=== PATIENT | male | born 1965 | race Caucasian/White ===

== ENCOUNTER → 2023-05-22 | Emergency (ER) | payer OTHER ==
[~2023-05-22] VITALS: Ht 180.3 cm; Wt 104.3 kg
[~2023-05-22] MED LIST: TDAP [DIPH/PERTUSSIS/TET] 0.5 ML VIAL IM ONE
[2023-05-22] MEDS: TDAP [DIPH/PERTUSSIS/TET] 0.5 ML VIAL IM ONE (16:29)
[2023-05-22 17:08] VITALS: BP 150/84; TEMP 97.9; O2SAT 98
== END | disposition home or self-care (01) ==
LOC: ER 13:59
DX: S61.310A Laceration without foreign body of right index finger with damage to nail, initial encounter (principal); W45.8XXA Other foreign body or object entering through skin, initial encounter; Y93.89 Activity, other specified; Y92.89 Other specified places as the place of occurrence of the external cause; Y99.0 Civilian activity done for income or pay
CPT/HCPCS: 90715

== ENCOUNTER 2023-07-13 20:48 | Emergency (ER) | payer MEDICAID, OTHER ==
[~2023-07-13] VITALS: Ht 177.8 cm; Wt 79.8 kg
[2023-07-13] MEDS ORDERED: NALOXONE PREFILLED SYRINGE 2 MG/2 ML SYRINGE ONE (21:35)
[2023-07-13] MEDS ORDERED: ONDANSETRON HCL/PF 4 MG/2 ML VIAL ONE ×2 (21:35→23:24)
[2023-07-13 21:36] LABS: BASOPHILS % (AUTO) 0.4 % (0.0-2.0); EOSINOPHILS % (AUTO) 0.5 % (0.0-6.0); HEMATOCRIT 41 % (39-51); HEMOGLOBIN 13.4 g/dL (13.5-17.5); LYMPHOCYTES # (AUTO) 1.2 K/uL (0.8-4.8); LYMPHOCYTES % (AUTO) 11.1 % (20.0-44.0); MEAN CORPUSCULAR HEMOGLOBIN 26 PG (26.0-33.0); MEAN CORPUSCULAR HGB CONC 33 g/dl (31.0-36.0); MEAN CORPUSCULAR VOLUME 80 fL (80-96); MONOCYTES # (AUTO) 0.7 K/uL (0.1-1.30); MONOCYTES % (AUTO) 6.6 % (2.0-12.0); NEUTROPHILS # (AUTO) 8.7 K/uL (1.8-8.9); NEUTROPHILS % (AUTO) 81.4 % (43.0-81.0); PLATELET COUNT (AUTO) 203 K/uL (150-450); RED CELL DISTRIBUTION WIDTH 14.5 % (11.5-15.0); WHITE BLOOD COUNT (AUTO) 10.7 K/uL (4.3-11.0)
[2023-07-13] MEDS: IV NS 0.9% 1,000 ML BAG IV ONE (21:36)
[2023-07-13] MEDS: NALOXONE PREFILLED SYRINGE 2 MG/2 ML SYRINGE IV ONE (21:36)
[2023-07-13] MEDS: ONDANSETRON HCL/PF 4 MG/2 ML VIAL IVP ONE (21:37)
[2023-07-13 22:02] LABS: ALANINE AMINOTRANSFERASE 23 U/L (12-78); ALBUMIN 3.6 g/dL (3.4-5.0); ALCOHOL, BLOOD < 3 mg/dL (0-10); ALKALINE PHOSPHATASE 98 U/L (46-116); ASPARTATE AMINOTRANSFERASE 13 U/L (15-37); BILIRUBIN,DIRECT 0.1 mg/dL (0.0-0.2); BILIRUBIN,TOTAL 0.3 mg/dL (0.2-1.0); CALCIUM, SERUM 9.3 mg/dL (8.5-10.1); CARBON DIOXIDE 30 mmol/L (21-32); CHLORIDE 101 mmol/L (98-107); CREATININE 0.8 mg/dL (0.6-1.3); GLUCOSE 117 mg/dL (74-106); POTASSIUM 3.1 mmol/L (3.5-5.1); SODIUM SERUM 140 mmol/L (136-145); TOTAL PROTEIN, SERUM 7.4 g/dL (6.4-8.2); UREA NITROGEN, BLOOD 17 mg/dL (7-18)
[2023-07-13 22:06] LABS: SALICYLATE 0.8 mg/dL (2.8-20.0)
[2023-07-13 22:07] LABS: ACETAMINOPHEN 0 ug/ml (10-30)
[2023-07-13 22:21] LABS: APPEARANCE,URINE SLIGHTLY CLOUDY (CLEAR); BILIRUBIN,URINE NEGATIVE (NEGATIVE); BLOOD, URINE NEGATIVE Ery/uL (NEGATIVE); COLOR,URINE YELLOW (YELLOW); KETONES,URINE NEGATIVE (NEGATIVE); LEUKOCYTE ESTERASE ,URINE NEGATIVE (NEGATIVE); NITRITE, URINE NEGATIVE (NEGATIVE); PH,URINE 8.5 (5.0-8.0); PROTEIN,URINE NEGATIVE (NEGATIVE); UGLUCOSE NEGATIVE (NEGATIVE); UROBILINOGEN,URINE 0.2 EU/dL (0.2)
[2023-07-13 22:32] LABS: AMPHETAMINE, URINE NEGATIVE (NEGATIVE); BARBITURATE, URINE NEGATIVE (NEGATIVE); BENZODIAZEPINE, URINE NEGATIVE (NEGATIVE); CANNABINOID, URINE NEGATIVE (NEGATIVE); COCCAINE, URINE NEGATIVE (NEGATIVE); PHENCYCLIDINE SCREEN,URINE NEGATIVE (NEGATIVE)
[2023-07-13] MEDS ORDERED: POTASSIUM CHLORIDE 20 MEQ TAB.PRT.SR PO ONE (22:33)
[2023-07-13] MEDS: POTASSIUM CHLORIDE 20 MEQ TAB.PRT.SR PO ONE (22:34)
[2023-07-13 22:48] LABS: OPIATE, URINE POSITIVE (NEGATIVE)
[2023-07-13 22:49] LABS: ADD URINE CULTURE NO; BACTERIA,URINE Rare /HPF (None Seen); RBC,URINE 0-2 /HPF (0-2); SQUAMOUS EPITHELIAL CELL,UR Rare /HPF (None Seen); WBC,URINE 0-2 /HPF (0-3)
[2023-07-13] MEDS: ONDANSETRON HCL/PF 4 MG/2 ML VIAL IV ONE (23:30)
[2023-07-14] MEDS ORDERED: METOCLOPRAMIDE HCL 10 MG/2 ML VIAL ONE (01:07)
[2023-07-14] MEDS: METOCLOPRAMIDE HCL 10 MG/2 ML VIAL IV ONE (01:13)
[2023-07-14 15:57] VITALS: BP 155/98; TEMP 98.1; O2SAT 97
== END 2023-07-14 15:58 | disposition home or self-care (01) ==
LOC: ER 20:59
DX: T40.491A Poisoning by other synthetic narcotics, accidental (unintentional), initial encounter (principal); R11.0 Nausea; Z20.822 Contact with and (suspected) exposure to COVID-19; Y92.89 Other specified places as the place of occurrence of the external cause
CPT/HCPCS: 99285; 96374; 96361; 96375 ×2; 93005; 96376; 85025; 80048; 80076; 81001; 36415; 82962; 87426; 80143; 80320; 80307; 71045; J2405 ×2; J7030; J2310; J2765; G0480